=== PATIENT | male | born 1965 | race African-American/Black ===

== ENCOUNTER 2018-12-13 21:23 | Emergency (ER) | payer SELFPAY ==
--- NOTE | 2018-12-13 22:02 | EDPHYS ---
Physician Documentation [facility] Name: Yordan Duran Age: 53 yrs Sex: Male : 1965 Arrival Date: 12/13/2018 Time: 21:26 Bed 14 Private MD: None, None ED Physician Seth Gomez HPI: 12/13 21:36 This 53 yrs old Black Male presents to ER via Unassigned with complaints of Back Pain. rn 21:57 The patient presents with pain that is chronic. The symptoms are located in the low rn back. Onset: The symptoms/episode began/occurred at an unknown time. Modifying factors: The patient symptoms are alleviated by nothing, the patient symptoms are aggravated by any movement. Severity of symptoms: At their worst the symptoms were mild, in the emergency department the symptoms are unchanged. The patient has experienced similar episodes in the past, chronically. REports "years" of low back pain, no recent or new injury, hurts to twist and move, no lower extremity weakness, + radiates down both legs, no bowel or bladder problems. Taking OTC meds and states hurting more today but identical to his chronic pain otherwise.. Historical: - Allergies: 21:37 No Known Allergies; tl2 - Home Meds: 21:37 None [Active]; tl2 - PMHx: 21:37 Hypertension; tl2 - PSHx: 21:37 None; tl2 - Immunization history:: Adult Immunizations up to date. - Social history:: Smoking status: Patient uses tobacco products, smokes one-half pack cigarettes per day. - Ebola Screening: : No symptoms or risks identified at this time. - Family history:: not pertinent. - Hospitalizations: : No recent hospitalization is reported. ROS: 21:57 Constitutional: Negative for fever, chills, and weight loss, Eyes: Negative for injury, rn pain, redness, and discharge, Neck: Negative for injury, pain, and swelling, Cardiovascular: Negative for chest pain, palpitations, and edema, Respiratory: Negative for shortness of breath, cough, wheezing, and pleuritic chest pain, Abdomen/GI: Negative for abdominal pain, nausea, vomiting, diarrhea, and constipation, Back: + low back pain MS/Extremity: Negative for injury and deformity, Neuro: Negative for headache, weakness, numbness, tingling, and seizure. Exam: 21:57 Constitutional: This is a well developed, well nourished patient who is awake, alert, rn and in no acute distress. Back: No spinal tenderness. No costovertebral tenderness. Full range of motion. Skin: Warm, dry with normal turgor. Normal color with no rashes, no lesions, and no evidence of cellulitis. MS/ Extremity: Pulses equal, no cyanosis. Neurovascular intact. Full, normal range of motion. Equal circumference. Neuro: Awake and alert, GCS 15, oriented to person, place, time, and situation. Cranial nerves II-XII grossly intact. Motor strength 5/5 in all extremities. Sensory grossly intact. Cerebellar exam normal. Normal gait. Vital Signs: 21:37 BP 160 / 116; Pulse 73; Resp 18; Temp 98.3(O); Pulse Ox 96% on R/A; Weight 79.38 kg; tl2 Height 6 ft. 0 in. (182.88 cm); Pain 9/10; 21:37 Body Mass Index 23.73 (79.38 kg, 182.88 cm) tl2 MDM: 21:31 Patient medically screened. rn 21:57 Differential diagnosis: arthritis, chronic back pain, Fatigue Osteoarthritis sprain. rn Data reviewed: vital signs, nurses notes, and as a result, I will discharge patient. Counseling: I had a detailed discussion with the patient and/or guardian regarding: the historical points, exam findings, and any diagnostic results supporting the discharge/admit diagnosis, the need for outpatient follow up, to return to the emergency department if symptoms worsen or persist or if there are any questions or concerns that arise at home. Special discussion: I discussed with the patient/guardian in detail that at this point there is no indication for admission to the hospital. It is understood, however, that if the symptoms persist or worsen the patient needs to return immediately for re-evaluation. Administered Medications: 22:17 Not Given (Patient Refused): Decadron 10 mg IM once jb4 22:17 Not Given (Patient Refused): TORadol 30 mg IM once jb4 Disposition: 12/13/18 22:01 Discharged to Home. Impression: Low back pain, Radiculopathy, lumbosacral region. - Condition is Stable. - Discharge Instructions: Back Pain, Adult, Lumbosacral Radiculopathy, Musculoskeletal Pain. - Prescriptions for Cyclobenzaprine 10 mg Oral Tablet - take 1 tablet by ORAL route every 8 hours As needed; 20 tablet. Medrol (James) 4 mg Oral Tablets, Dose Pack - take 1 tablet by ORAL route as directed - follow package instructions; 1 packet. - Medication Reconciliation Form, Thank You Letter, Antibiotic Education, Prescription Opioid Use form. - Follow up: Private Physician; When: As needed; Reason: Recheck today's complaints, Re-evaluation by your physician. - Problem is chronic. - Symptoms have improved. Signatures: Seth Gomez MD MD rn Knox, Taylor RN RN tl2 Mj Grant RN RN jb4 Corrections: (The following items were deleted from the chart) 22:20 22:01 12/13/2018 22:01 Discharged to Home. Impression: Low back pain; Radiculopathy, jb4 lumbosacral region. Condition is Stable. Forms are Medication Reconciliation Form, Thank You Letter, Antibiotic Education, Prescription Opioid Use. Follow up: Private Physician; When: As needed; Reason: Recheck today's complaints, Re-evaluation by your physician. Problem is chronic. Symptoms have improved. rn
--- NOTE | 2018-12-13 22:02 | ER ---
Nurse's Notes [facility] Name: Yordan Duran Age: 53 yrs Sex: Male : 1965 Arrival Date: 12/13/2018 Time: 21:26 Bed 14 Private MD: None, None Diagnosis: Low back pain;Radiculopathy, lumbosacral region Presentation: 12/13 21:36 Presenting complaint: Patient states: Chronic back pain, worse over the last month. tl2 Reports lower back pain that radiates down both legs. Transition of care: patient was not received from another setting of care. Onset of symptoms is unknown. Risk Assessment: Do you want to hurt yourself or someone else? Patient reports no desire to harm self or others. Initial Sepsis Screen: Does the patient meet any 2 criteria? No. Patient's initial sepsis screen is negative. Does the patient have a suspected source of infection? No. Patient's initial sepsis screen is negative. Care prior to arrival: None. 21:36 Method Of Arrival: Ambulatory tl2 21:36 Acuity: DESMOND 4 tl2 Triage Assessment: 21:38 General: Appears in no apparent distress. uncomfortable, Behavior is calm, cooperative, tl2 appropriate for age. Pain: Complains of pain in lumbar area, left low back and right low back Pain radiates to right leg and left leg. Musculoskeletal: Circulation, motion, and sensation intact. Historical: - Allergies: 21:37 No Known Allergies; tl2 - Home Meds: 21:37 None [Active]; tl2 - PMHx: 21:37 Hypertension; tl2 - PSHx: 21:37 None; tl2 - Immunization history:: Adult Immunizations up to date. - Social history:: Smoking status: Patient uses tobacco products, smokes one-half pack cigarettes per day. - Ebola Screening: : No symptoms or risks identified at this time. - Family history:: not pertinent. - Hospitalizations: : No recent hospitalization is reported. Screenin:37 Abuse screen: Denies threats or abuse. Nutritional screening: No deficits noted. tl2 Tuberculosis screening: No symptoms or risk factors identified. Fall Risk None identified. Assessment: 22:17 General: Appears in no apparent distress. uncomfortable, Behavior is agitated. Pain: jb4 Complains of pain in low back area Pain does not radiate. Pain currently is 6 out of 10 on a pain scale. Neuro: Level of Consciousness is awake, alert, obeys commands, confused, Oriented to person, place, time, situation. Cardiovascular: Patient's skin is warm and dry. Respiratory: Airway is patent Respiratory effort is even, unlabored, Respiratory pattern is regular, symmetrical. GI: No signs and/or symptoms were reported involving the gastrointestinal system. : No signs and/or symptoms were reported regarding the genitourinary system. EENT: No signs and/or symptoms were reported regarding the EENT system. Derm: Skin is intact, Skin is dry, Skin is normal, Skin temperature is warm. Musculoskeletal: Reports pain in low back area. Vital Signs: 21:37 BP 160 / 116; Pulse 73; Resp 18; Temp 98.3(O); Pulse Ox 96% on R/A; Weight 79.38 kg; tl2 Height 6 ft. 0 in. (182.88 cm); Pain 9/10; 21:37 Body Mass Index 23.73 (79.38 kg, 182.88 cm) tl2 ED Course: 21:26 Patient arrived in ED. mr 21:26 None, None is Private Physician. mr 21:31 Seth Gomez MD is Attending Physician. rn 21:31 Mj Grant RN is Primary Nurse. jb4 21:37 Triage completed. tl2 21:37 Arm band placed on right wrist. tl2 22:17 Patient has correct armband on for positive identification. Bed in low position. Call jb4 light in reach. Side rails up X 1. Pulse ox on. NIBP on. 22:17 No provider procedures requiring assistance completed. Patient did not have IV access jb4 during this emergency room visit. Administered Medications: 22:17 Not Given (Patient Refused): Decadron 10 mg IM once jb4 22:17 Not Given (Patient Refused): TORadol 30 mg IM once jb4 Outcome: 22:01 Discharge ordered by . rn 22:17 Discharged to home ambulatory. jb4 22:17 Condition: stable 22:17 Discharge instructions given to patient, Instructed on discharge instructions, follow up and referral plans. medication usage, Demonstrated understanding of instructions, follow-up care, medications, Prescriptions given X 2. 22:20 Patient left the ED. jb4 Signatures: Yoly Sanchez mr Gomez, MD MD linda Ann Taylor, LINDA RN tl2 Mj Grant, RN RN jb4
[2018-12-13] MEDS ORDERED: DEXAMETHASONE 4 MG/ML VIAL ONE (22:17)
[2018-12-13] MEDS ORDERED: KETOROLAC 30 MG/ML INJ ONE (22:17)
== END 2018-12-13 22:20 | disposition home or self-care (01) ==
LOC: ER 21:23
DX: M54.17 Radiculopathy, lumbosacral region (principal); I10 Essential (primary) hypertension; F17.210 Nicotine dependence, cigarettes, uncomplicated
CPT/HCPCS: 99283

== ENCOUNTER 2021-09-28 20:40 | Emergency (ER) | payer SELFPAY ==
--- OUTSIDE RECORDS SUMMARY | 2021-09-28 20:43 | XMS REPORT | Continuity of Care Document ---
:1965 Author Organization [facility] t Address [address] [place] [address] Care Team Providers Name Role Phone PERLA Attending Clinician Unavailable CHELSIE, Roby Attending Clinician Unavailable JUSTINO, Roby Attending Clinician Unavailable KENNETH Attending Clinician Unavailable Problems This patient has no known problems. Allergies, Adverse Reactions, Alerts Allergy Allergy Status Severity Reaction(s) Onset Inactive Treating Comm ents Source Name Type Date Date Clinician NO KNOWN Drug Active [facility] ALLERGIE Class [facility] Medications This patient has no known medications. Procedures This patient has no known procedures. Encounters Start End Encounter Admission Attending Care Care Encounter Source Date/Time Date/Time Type Type Clinicians Facility Department ID 2021-04-06 2021-04-06 Outpatient Efrem DUNCAN [facility] [id number] Univers 09:00:00 09:00:00 [facility] [id number] 2021-04-06 2021-04-06 Outpatient Efrem DUNCAN [facility] [id number] Univers 09:00:00 09:00:00 NAIDA gould [facility] 2021-03-24 2021-03-24 Outpatient Efrem HOLGUIN [facility] [id number] Univers 08:30:00 08:30:00 LANETTE [id number] [facility] 2021-03-24 2021-03-24 Outpatient Efrem HOLGUIN [facility] [id number] Univers 08:30:00 08:30:00 LANETTE [facility] 2021-02-23 2021-02-23 Outpatient Efrem BADILLO [facility] [id number] Univers 10:00:00 10:00:00 ANNIA [id number] moni o [facility] 2021-02-23 2021-02-23 Outpatient Efrem BADILLO [facility] [id number] Univers 10:00:00 10:00:00 ANNIA norris [facility] 2021-01-23 2021-01-23 Outpatient R KENNETH [facility] [id number] Univers 13:00:00 13:00:00 ALBERTO [facility] Results This patient has no known results.
--- NOTE | 2021-09-28 21:53 | ER ---
Nurse's Notes [facility] Name: Yordan Duran Age: 56 yrs Sex: Male : 1965 Arrival Date: 09/28/2021 Time: 20:43 Bed 12 Private MD: Diagnosis: Localized swelling, mass and lump, right lower limb Presentation: 09/28 20:46 Chief complaint:. Chief complaint: Patient states: right leg has large bump. PT denies da3 trauma . Happened few hours ago. Coronavirus screen: Vaccine status: Patient reports receiving the 2nd dose of the covid vaccine. Ebola Screen: No symptoms or risks identified at this time. Initial Sepsis Screen: Does the patient meet any 2 criteria? No. Patient's initial sepsis screen is negative. Risk Assessment: Do you want to hurt yourself or someone else? Patient reports no desire to harm self or others. 20:46 Method Of Arrival: Ambulatory da3 20:46 Acuity: DESMOND 4 da3 21:56 Initial Sepsis Screen: Does the patient have a suspected source of infection? No. lp1 Patient's initial sepsis screen is negative. Onset of symptoms was September 28, 2021. Triage Assessment: 20:49 General: Appears in no apparent distress. comfortable, Behavior is calm, cooperative, ld1 appropriate for age. Pain: Denies pain. EENT: No signs and/or symptoms were reported regarding the EENT system. Neuro: Level of Consciousness is awake, alert, obeys commands, Oriented to person, place, time, situation, Appropriate for age. Cardiovascular: Capillary refill < 3 seconds Patient's skin is warm and dry. Rhythm is sinus tachycardia. Respiratory: Airway is patent Respiratory effort is even, unlabored, Respiratory pattern is regular, symmetrical. GI: Abdomen is flat, non-distended. : No signs and/or symptoms were reported regarding the genitourinary system. Derm: No signs and/or symptoms reported regarding the dermatologic system. Musculoskeletal: No signs and/or symptoms reported regarding the musculoskeletal system. 21:09 Injury Description: pt states cutting wood with chainsaw a short time after completion da3 noticed bump on rt lower leg . Carol trauma and no visible injury. Historical: - Allergies: 21:07 No Known Allergies; da3 - Immunization history:: Client reports receiving the 2nd dose of the Covid vaccine. - Social history:: Smoking status: Patient denies any tobacco usage or history of. - Family history:: not pertinent. - Hospitalizations: : No recent hospitalization is reported. Screenin:52 Abuse screen: Denies threats or abuse. Denies injuries from another. Nutritional ld1 screening: No deficits noted. Tuberculosis screening: No symptoms or risk factors identified. Fall Risk None identified. Assessment: 20:52 Reassessment: See triage assessment. ld1 21:44 General: Appears in no apparent distress. Behavior is appropriate for age. Pain: lp1 Complains of pain in right rodriguez. Neuro: Level of Consciousness is awake, alert, obeys commands, Oriented to person, place, time, situation. Cardiovascular: Patient's skin is warm and dry. Respiratory: Respiratory effort is even, unlabored. GI: No signs and/or symptoms were reported involving the gastrointestinal system. : No signs and/or symptoms were reported regarding the genitourinary system. EENT: No signs and/or symptoms were reported regarding the EENT system. Derm: Skin is intact, Skin is dry, Skin is normal, nodule noted to right rodriguez of leg, palpable, fixed. Musculoskeletal: Circulation, motion, and sensation intact. Vital Signs: 20:46 BP 153 / 99; Pulse 93; Resp 20; Temp 97.8; Pulse Ox 99% on R/A; Weight 81.65 kg; Height da3 6 ft. 0 in. (182.88 cm); 20:46 Body Mass Index 24.41 (81.65 kg, 182.88 cm) da3 ED Course: 20:43 Patient arrived in ED. mh5 20:44 Kade Cobian PA is PHCP. cp 20:44 Seth Gomez MD is Attending Physician. cp 20:45 Hazel Purcell, LINDA is Primary Nurse. ld1 20:49 Triage completed. ld1 20:52 No provider procedures requiring assistance completed. ld1 21:32 Seth Gomez MD is Attending Physician. rn 21:45 Emy Castro, LINDA is Primary Nurse. lp1 21:56 Arm band placed on. lp1 21:56 Patient has correct armband on for positive identification. lp1 21:56 Patient did not have IV access during this emergency room visit. lp1 Administered Medications: No medications were administered Outcome: 21:53 Discharge ordered by . rn 21:56 Discharged to home ambulatory, with significant other. lp1 21:56 Condition: good 21:56 Discharge instructions given to patient, Instructed on discharge instructions, follow up and referral plans. Demonstrated understanding of instructions, follow-up care. 21:57 Patient left the ED. lp1 Signatures: Seth Gomez MD MD rn Pena, Laura, RN RN lp1 Kade Cobian PA PA cp Martinez, [facility] Hazel Purcell RN RN 1 Delano Chung RN RN da3 Corrections: (The following items were deleted from the chart) 20:50 20:49 Allergies: No Known Allergies; 1 ld1 2050 20:49 PMHx: Hypertension; 1 ld1 20:50 20:49 PMHx: None; 1 ld1 21: 20:46 Chief complaint: EMS states: toned out for SOB due to COPD exacerbation while da3 washing his dog. Upon arrival to pt home SpO2 89% RA. Upon arrival to ER after neb treatment SpO2 93% RA. ld1 : 20:46 Coronavirus screen: At this time, the client does not indicate any symptoms da3 associated with coronavirus-19. ld1 : 20:46 Ebola Screen: No symptoms or risks identified at this time. 1 da3 : 20:46 Initial Sepsis Screen: Does the patient meet any 2 criteria? No. Patient's da3 initial sepsis screen is negative. Does the patient have a suspected source of infection? No. Patient's initial sepsis screen is negative. ld1 : 20:46 Risk Assessment: Do you want to hurt yourself or someone else? Patient reports no da3 desire to harm self or others. ld1 : 20:46 Onset of symptoms was September 28, 2021 1 da3 : 20:46 Method Of Arrival: EMS: [facility] 1 da3 : 20:46 BP 144 / 86; Pulse 105bpm; Resp 18bpm; Pulse Ox 90% RA; Temp 98.2F Oral; 83.91 da3 kg; Height 5 ft. 10 in.; BMI: 26.5; Pain 0/10; ld1 : 20:46 Acuity: DESMOND 3 1 da3 21:08 20:49 Allergies: PENICILLINS; 1 da3 21:08 20:49 Home Meds: None; 1 da3 : 20:49 PMHx: Hypertensive disorder; 1 da3 : 20:49 PSHx: None; 1 da3 : 20:49 Immunization history: Adult Immunizations up to date, 1 3 : 20:49 Social history: Smoking status: Patient denies any tobacco usage or history of. da3 1 : 21:07 PMHx: sceolosis; 3 3 : 20:49 Arm band placed on right wrist. 1 3 : 20:52 Patient has correct armband on for positive identification. Placed in gown. Bed da3 in low position. Call light in reach. Side rails up X2. 20:52 monitoring coordinator on. Pulse ox on. NIBP on. : 20:52 Door closed. Noise minimized. Warm blanket given. 3
--- NOTE | 2021-09-28 21:53 | EDPHYS ---
Physician Documentation [facility] Name: Yordan Duran Age: 56 yrs Sex: Male : 1965 Arrival Date: 09/28/2021 Time: 20:43 Bed 12 Private MD: ED Physician Seth Gomez HPI: 09/28 21:44 This 56 yrs old Black Male presents to ER via Ambulatory with complaints of Leg pain rn and bump. 21:44 The patient presents with pain, swelling. The complaints affect the medial aspect of rn right calf. Onset: The symptoms/episode began/occurred just prior to arrival. Modifying factors: The symptoms are alleviated by nothing. the symptoms are aggravated by nothing. Associated signs and symptoms: Pertinent positives: swelling, Pertinent negatives fever, rash, weakness. Severity of symptoms: At their worst the symptoms were mild, in the emergency department the symptoms are unchanged. The patient has not experienced similar symptoms in the past. The patient has not recently seen a physician. Patient reports cutting wood outside, no direct trauma, had not noticed any swelling earlier in the day. Was wearing boots that was rubbing on his leg, went inside and took off boots and at the edge of where his boots were touching the skin noticed an area of swelling and tenderness. Denies any bite or direct trauma. No warmth or redness.. Historical: - Allergies: 21:07 No Known Allergies; da3 - Immunization history:: Client reports receiving the 2nd dose of the Covid vaccine. - Social history:: Smoking status: Patient denies any tobacco usage or history of. - Family history:: not pertinent. - Hospitalizations: : No recent hospitalization is reported. ROS: 21:44 Constitutional: Negative for fever, chills, and weight loss, Cardiovascular: Negative rn for chest pain, palpitations, and edema, Respiratory: Negative for shortness of breath, cough, wheezing, and pleuritic chest pain, MS/Extremity: Positive for local swelling to inner right lower leg Skin: Negative for injury, rash, and discoloration. Exam: 21:44 Constitutional: This is a well developed, well nourished patient who is awake, alert, rn and in no acute distress. Ambulatory to room without difficulty or assistance Cardiovascular: Regular rate and rhythm. No pulse deficits. Respiratory: No increased work of breathing, no retractions or nasal flaring. MS/ Extremity: Pulses equal, no cyanosis. Neurovascular intact. Full, normal range of motion. 2 cm area of localized swelling to the right lower leg on medial side abutting calf. No warmth or erythema. No fluctuance. Feels indurated. No puncture wounds noted. No bony tenderness along the tibia or the fibula on the opposite side. Vital Signs: 20:46 BP 153 / 99; Pulse 93; Resp 20; Temp 97.8; Pulse Ox 99% on R/A; Weight 81.65 kg; Height da3 6 ft. 0 in. (182.88 cm); 20:46 Body Mass Index 24.41 (81.65 kg, 182.88 cm) da3 Procedures: 21:44 Ultrasound: Type: Bedside ultrasound performed by Dr. Gomez, shows a 2 cm area of fluid rn collection, is very superficial and does not abut the bone., performed by the emergency department physician. MDM: 21:32 Patient medically screened. rn 21:51 Differential diagnosis: Hematoma, ruptured blood vessel, early abscess. Data reviewed: rn vital signs, nurses notes, radiologic studies, and as a result, I will discharge patient. Counseling: I had a detailed discussion with the patient and/or guardian regarding: the historical points, exam findings, and any diagnostic results supporting the discharge/admit diagnosis, radiology results, the need for outpatient follow up, to return to the emergency department if symptoms worsen or persist or if there are any questions or concerns that arise at home. Special discussion: I discussed with the patient/guardian in detail that at this point there is no indication for admission to the hospital. It is understood, however, that if the symptoms persist or worsen the patient needs to return immediately for re-evaluation. Based on the history and exam findings, there is no indication for further emergent testing or inpatient evaluation. I discussed with the patient/guardian the need to see the primary care provider for further evaluation of the symptoms. ED course: Spoke with be given at the level of the boot edge, could be local tissue damage such as hematoma or ruptured blood vessel, told him there is a fluid collection there and he states happened so rapidly and he had no issues prior to putting boots on. Offered needle aspiration for definitive testing and patient refuses. States will go home with warm compresses and return if worsens. States he is scared of needles and is absolutely not getting a needle in this.. Administered Medications: No medications were administered Disposition Summary: 09/28/21 21:53 Discharge Ordered Location: Home rn Problem: new rn Symptoms: have improved rn Condition: Stable rn Diagnosis - Localized swelling, mass and lump, right lower limb rn Followup: rn - With: Private Physician - When: As needed - Reason: Recheck today's complaints, Re-evaluation by your physician Forms: - Medication Reconciliation Form rn - Thank You Letter rn - Antibiotic sports attorney - Prescription Opioid Use rn Signatures: Seth Gomez MD MD rn Dibbern, Lauren, RN RN ld1 Delano Chung RN RN da3 Corrections: (The following items were deleted from the chart) 20:50 20:49 Allergies: No Known Allergies; ld1 ld1 20:50 20:49 PMHx: Hypertension; ld1 ld1 20:50 20:49 PMHx: None; ld1 ld1 21:08 20:49 Allergies: PENICILLINS; ld1 da3 21:08 20:49 Home Meds: None; ld1 da3 21:08 20:49 PMHx: Hypertensive disorder; ld1 da3 21:08 20:49 PSHx: None; ld1 da3 21:08 20:49 Immunization history: Adult Immunizations up to date, ld1 da3 21:08 20:49 Social history: Smoking status: Patient denies any tobacco usage or history of. da3 ld1 21:08 21:07 PMHx: sceolosis; da3 da3 21:51 21:44 Constitutional: This is a well developed, well nourished patient who is awake, rn alert, and in no acute distress. Ambulatory to room without difficulty or assistance Cardiovascular: Regular rate and rhythm. No pulse deficits. Respiratory: No increased work of breathing, no retractions or nasal flaring. MS/ Extremity: Pulses equal, no cyanosis. Neurovascular intact. Full, normal range of motion. 2 cm area of localized swelling to the right lower leg on medial side abutting calf. No warmth or erythema. No fluctuance. Feels indurated. No puncture wounds noted rn
[2021-09-28 22:02] VITALS: BP 153/99; TEMP 97.8; O2SAT 99
== END 2021-09-28 21:57 | disposition home or self-care (01) ==
LOC: ER 20:40
DX: R60.9 Edema, unspecified (principal)
CPT/HCPCS: 99284

== ENCOUNTER 2021-10-07 08:28 | Emergency (ER) | payer SELFPAY ==
--- OUTSIDE RECORDS SUMMARY | 2021-10-07 08:31 | XMS REPORT | Continuity of Care Document ---
:1965 Author Organization [facility] t Address [address] [place] [address] Care Team Providers Name Role Phone PERLA Attending Clinician Unavailable CHELSIE, A Attending Clinician Unavailable JUSTINO, Roby Attending Clinician Unavailable KENNETH Attending Clinician Unavailable Problems This patient has no known problems. Allergies, Adverse Reactions, Alerts Allergy Allergy Status Severity Reaction(s) Onset Inactive Treating Comm ents Source Name Type Date Date Clinician NO KNOWN Drug Active [facility] Medications This patient has no known medications. Procedures This patient has no known procedures. Encounters Start End Encounter Admission Attending Care Care Encounter Source Date/Time Date/Time Type Type Clinicians Facility Department ID 2021-04-06 2021-04-06 Outpatient R PERLA [facility] [id number] [facility] 09:00:00 09:00:00 NAIDA [id number] moni o [facility] 2021-04-06 2021-04-06 [facility] [id number] [facility] 09:00:00 09:00:00 NAIDA gould [facility] 2021-03-24 2021-03-24 Outpatient Efrem HOLGUIN [facility] [id number] Univers 08:30:00 08:30:00 LANETTE [id number] [facility] 2021-03-24 2021-03-24 Outpatient Efrem HOLGUIN [facility] [id number] Univers 08:30:00 08:30:00 LANETTE [facility] 2021-02-23 2021-02-23 Outpatient Efrem BADILLO [facility] [id number] Univers 10:00:00 10:00:00 ANNIA [id number] moni o [facility] 2021-02-23 2021-02-23 Outpatient Efrem BADILLO [facility] [id number] [facility] 10:00:00 10:00:00 ANNIA norris [facility] 2021-01-23 2021-01-23 Outpatient Efrem COOPER [facility] [id number] Univers 13:00:00 13:00:00 ALBERTO [place] [facility] Results This patient has no known results.
--- NOTE | 2021-10-07 10:05 | ER ---
Nurse's Notes [facility] Name: Yordan Duran Age: 56 yrs Sex: Male : 1965 Arrival Date: 10/07/2021 Time: 08:30 Bed Waiting Private MD: Diagnosis: ED Course: 10/07 08:30 Patient arrived in ED. mr Administered Medications: No medications were administered Outcome: 10:04 Patient left the ED. ss Signatures: Yoly Sanchez Shelby, LINDA RN ss
== END 2021-10-07 10:04 | disposition left against medical advice (07) ==
LOC: ER 08:28
DX: Z02.9 Encounter for administrative examinations, unspecified (principal)